=== PATIENT | female | born 1995 | race African-American/Black ===

== ENCOUNTER 2020-10-20 22:51 | Emergency (ER) | payer SELFPAY ==
[~2020-10-20] VITALS: Ht 160 cm; Wt 62.0 kg
[2020-10-20] MEDS ORDERED: SODIUM CHLORIDE 0.9% 1,000 ML IV ONE (23:15)
[2020-10-20] MEDS ORDERED: KETOROLAC 15MG/ML VIAL IV ONE (23:30)
[2020-10-20 23:41] LABS: BASOPHILS % 0.2 % (0.0-2.0); EOSINOPHILS % 0.3 % (0.0-5.0); HEMATOCRIT. 37.9 % (36.0-48.0); LYMPHOCYTES % 8.3 % (20.0-50.0); MEAN CORPUSCULAR VOLUME 90.4 fL (81.0-99.0); MEAN PLATELET VOLUME 7.5 fl (7.4-10.4); MONOCYTES % 6.6 % (2.0-8.0); NEUTROPHILS % 84.6 % (40.0-76.0); PLATELET 218 x1000/uL (130-400); RED CELL DISTRIBUTION WIDTH 14.4 % (11.6-14.6)
[2020-10-20 23:45] LABS: CHLORIDE 108 mEq/L (98-107)
[2020-10-20 23:54] LABS: PROTHROMBIN TIME 10.9 sec (9.6-11.0)
[2020-10-21 00:02] LABS: CLARITY URINE CLEAR (CLEAR); COLOR URINE YELLOW (YELLOW); KETONES URINE NEGATIVE (NEGATIVE); LEUKOCYTE ESTERASE URINE NEGATIVE (NEGATIVE); NITRITE URINE NEGATIVE (NEGATIVE); OCCULT BLOOD URINE NEGATIVE (NEGATIVE); PH URINE 8.5 (4.5-8.0); PROTEIN URINE TRACE (NEGATIVE); SPECIFIC GRAVITY URINE 1.027 (1.005-1.030)
[2020-10-21 00:15] LABS: *AMPHETAMINES SCREEN URINE NEGATIVE (NEGATIVE); *BENZODIAZEPINES SCREEN URINE NEGATIVE (NEGATIVE); *COCAINE SCREEN URINE NEGATIVE (NEGATIVE)
[2020-10-21] MEDS ORDERED: KETOROLAC 15MG/ML VIAL IV NR (00:15)
[2020-10-21 00:16] LABS: *BARBITURATES SCREEN URINE NEGATIVE (NEGATIVE); METHADONE URINE SCREEN NEGATIVE (NEGATIVE); OPIATES URINE SCREEN NEGATIVE (NEGATIVE); PHENCYCLIDINE URINE SCREEN NEGATIVE (NEGATIVE)
[2020-10-21 00:20] LABS: HCG SCREEN NEGATIVE
[2020-10-21 00:21] LABS: CANNABINOID URINE SCREEN PRESUMTIVE POSITIVE (NEGATIVE)
[2020-10-21] MEDS ORDERED: KETOROLAC 15MG/ML VIAL IV ONE (00:30)
[2020-10-21] MEDS ORDERED: METR500T PO (02:47)
[2020-10-21 02:55] VITALS: BP 129/62
[2020-10-21] MEDS ORDERED: METRONIDAZOLE 500MG TABLET PO ONE (03:00)
== END 2020-10-21 03:06 | disposition home or self-care (01) ==
LOC: ER 22:51
DX: N76.0 Acute vaginitis (principal); N83.202 Unspecified ovarian cyst, left side; R10.9 Unspecified abdominal pain; Z88.1 Allergy status to other antibiotic agents; Z88.3 Allergy status to other anti-infective agents; Z88.0 Allergy status to penicillin
CPT/HCPCS: 36415; 74176; 76830; 76856; 80053; 80305; 81003; 81025; 83690; 84703; 85025; 85610; 87591; 93005; 96361; 96374; 96376; 99285; J1885; J7030; Z7610